=== PATIENT | male | born 1975 | race Caucasian/White ===

== ENCOUNTER 2017-05-21 09:00 | Day surgery (SDC) | payer OTHER ==
[~2017-05-21 09:00] MED LIST: EPINEPHrine INJ 1 MG/ML 1ML AMP As Ordered; LIDOCAINE 2% INJ 100 MG/5 ML SDV (FOR ANES.) As Ordered; MIDAZOLAM INJ 2 MG/2 ML VIAL (J2250) As Ordered; ONDANSETRON 4MG/2ML VIAL (J2405) As Ordered; PROPOFOL 200 MG/20 ML VIAL As Ordered; ROCURONIUM BROMIDE 50 MG/5 ML VIAL As Ordered; fentaNYL 250 MCG/5 ML INJECTION (J3010) As Ordered
[2017-05-21] MEDS: LR 1,000 ML IV ×2 (09:30→12:00)
[2017-05-21] MEDS ORDERED: LIDOCAINE 1% MDV 20ML VIAL SQ (09:30)
[2017-05-21] MEDS ORDERED: PROPOFOL 200 MG/20 ML VIAL As Ordered (10:11)
[2017-05-21] MEDS ORDERED: dexameTHASONE 4 MG/ML 1ML VIAL (J1100) As Ordered ×2 (10:16)
[2017-05-21] MEDS ORDERED: NEOSTIGMINE 10 MG/10 ML VIAL (J2710) As Ordered (10:20)
[2017-05-21] MEDS ORDERED: GLYCOPYRROLATE INJ 0.2 MG/ML 2 ML VIAL As Ordered ×2 (10:20→11:19)
[2017-05-21] MEDS: BUPIVACAINE HCL 0.25% 30 ML VIAL As Ordered (10:34)
[2017-05-21] MEDS: LIDOCAINE 1% SDV INJ 30 ML VIAL As Ordered (10:34)
[2017-05-21] MEDS ORDERED: ePHEDrine INJ 50 MG/ML VIAL As Ordered (10:41)
[2017-05-21] MEDS ORDERED: ROCURONIUM BROMIDE 50 MG/5 ML VIAL As Ordered (11:19)
[2017-05-21] MEDS: PERCOCET 5MG/325MG TAB PO (12:12)
[2017-05-21] MEDS ORDERED: MORPHINE 10 MG/ML 1ML VIAL (J2270) IV (12:15)
[2017-05-21] MEDS ORDERED: fentaNYL 100 MCG/2 ML INJECTION (J3010) IV (12:15)
[2017-05-21] MEDS ORDERED: ONDANSETRON 4MG/2ML VIAL (J2405) IV ×2 (12:15→12:30)
[2017-05-21] MEDS ORDERED: KETOROLAC 30 MG/ML VIAL (J1885) IV (12:30)
[2017-05-21] MEDS ORDERED: NORCO, ANEXSIA 5/325MG TABLET (HYDROcodone/ACETAMINOPHEN) PO (12:30)
[2017-05-21] MEDS: METOCLOPRAMIDE INJ 10MG/2ML VIAL (J2765) IV (14:30)
[2017-05-21] MEDS: NORCO, ANEXSIA 5/325MG TABLET (HYDROcodone/ACETAMINOPHEN) PO (14:53)
== END 2017-05-21 16:50 | disposition home or self-care (01) ==
LOC: M SDC 09:00
DX: K40.91 Unilateral inguinal hernia, without obstruction or gangrene, recurrent (principal); T88.59XD Other complications of anesthesia, subsequent encounter; R06.83 Snoring; G47.33 Obstructive sleep apnea (adult) (pediatric); Z87.891 Personal history of nicotine dependence
CPT/HCPCS: 49651

== ENCOUNTER → 2017-08-08 | Outpatient (CLI) | payer OTHER | LOC: M SLEEP 19:28 | DX: G47.33 Obstructive sleep apnea (adult) (pediatric) (principal) ==

== ENCOUNTER → 2017-09-07 | Outpatient (CLI) | payer OTHER | LOC: M SLEEP 20:00 | DX: G47.33 Obstructive sleep apnea (adult) (pediatric) (principal) | CPT/HCPCS: 95811 ==